=== PATIENT | male | born 1960 | race Two or more races ===

== ENCOUNTER 2017-05-08 19:34 | Emergency (ER) | payer MEDICAID ==
[2017-05-08 19:47] VITALS: TEMP 98
--- NOTE | 2017-05-08 20:47 | ED PDOC ---
Arrival/HPI - General Chief Complaint: Lower Extremity Problem/Injury Time Seen by Provider: 05/08/17 19:40 Historian: Patient - History of Present Illness Narrative History of Present Illness (Text): 05/08/17 20:44 56 yo M, with h/o chronic neuropathy with numbness to the L toes, reports injuring his L foot, specifically his L 2nd toe when he accidentally hit it against the wall on 05/07/17. He sustained an abrasion on top of his L 1st and 2nd toe and then cleaned it with a topical antiseptic and developed a rash afterwards. Otherwise: (-) decrease in ROM, (-) fever, (-) chills. (-) other injury, (-) other or new numbness. PMD [facility] Past Medical History - Provider Review Nursing Documentation Reviewed: Yes - Infectious Disease Hx of Infectious Diseases: None - Neurological Other/Comment: neuropathy - Psychiatric Hx Substance Use: No - Surgical History Other/Comment: cervical surgery - Anesthesia Hx Anesthesia: Yes Hx Anesthesia Reactions: No Hx Malignant Hyperthermia: No Family/Social History - Physician Review Nursing Documentation Reviewed: Yes Family/Social History: Unknown Family HX Smoking Status: Never Smoked Hx Alcohol Use: No Hx Substance Use: No Allergies/Home Meds Allergies/Adverse Reactions: Allergies monosodium glutamate Adverse Reaction (Verified 05/08/17 19:49) RASH Home Medications: Home Meds Medication Instructions Recorded Confirmed Gabapentin [Neurontin] 200 mg PO BID 05/08/17 05/08/17 Review of Systems - Review of Systems Constitutional: Normal. absent: Fatigue, Weight Change, Fevers Musculoskeletal: Normal, Arthralgias. absent: Back Pain, Neck Pain Skin: Normal, Rash. absent: Pruritis, Skin Lesions Physical Exam - Physical Exam Narrative Physical Exam (Text): 05/08/17 20:47 GENERAL APPEARANCE: Patient is awake, alert, oriented x 3, in no acute distress. SKIN: Warm, dry, (+) non-tender, not warm erythematous rash to the dorsal aspect of the L 1st and 2nd digit, (-) other skin lesions or rashes. LOWER EXTREMITY: (+) Tenderness, (-) swelling, (-) ecchymosis of L 2nd toe. (- ) crepitus, (-) deformity. Tendon function intact. (-) distal vascular deficit. (+) decrease in sensation to the L toes. Remainder of foot, digits and ankle: (-) injury except. Vital Signs Temp Pulse Resp BP Pulse Ox 05/08/17 20:50 98 F 98 H 19 138/75 97 05/08/17 20:29 98 F 05/08/17 20:04 95 H 20 05/08/17 19:36 98 F 103 H 20 158/99 H 96 Medical Decision Making ED Course and Treatment: 05/08/17 20:46 56 yo M, with h/o chronic neuropathy with numbness to the L toes, reports injuring his L 2nd toe when he accidentally hit it against the wall on 05/07/17. Plan : - XR L foot - Motrin 600 mg PO 05/08/17 21:20 XR L foot: no fracture, no dislocation, as read by PA Patient advised that official radiology read of XR is still pending and will call the patient if there is any discrepancy within 24 hours. XR results d/w the patient. Dx of foot contusion and contact dermatitis d/w the patient. Follow up with primary care physician in 1-2 days without fail for re- evaluation and to observe for any increase in the size of redness. Advised to take medication as prescribed. Return to the emergency room at any time for any new or worsening symptoms. Patient states he fully agrees with and understands discharge instructions. States that he agrees with the plan and disposition. Verbalized and repeated discharge instructions and plan. I have given the patient opportunity to ask any additional questions. - RAD Interpretation Radiology Orders: 05/08/17 20:22 FOOT LEFT 3 VIEWS ROUTINE [RAD] Stat - Medication Orders Current Medication Orders: Discontinued Medications Ibuprofen (Motrin Tab) 600 mg PO STAT STA Stop: 05/08/17 20:23 Last Admin: 05/08/17 20:29 Dose: 600 mg MAR Pain/Vitals Document 05/08/17 20:29 GMI (Rec: 05/08/17 20:29 G[id number] Pain Reassessment Is This A Pain ReAssessment? Yes Sleep Is patient sleeping during reassessment? No Presence of Pain Presence of Pain Yes Pain Scale Used Pain Scale Used Numeric Vitals Temperature (97.6 F-99.6 F) 98 F - PA / NOTCHER / Resident Statement MD/DO has reviewed & agrees with the documentation as recorded. Disposition/Present on Arrival - Present on Arrival Any Indicators Present on Arrival: No History of DVT/PE: No History of Uncontrolled Diabetes: No Urinary Catheter: No History of Decub. Ulcer: No History Surgical Site Infection Following: None - Disposition Have Diagnosis and Disposition been Completed?: Yes Diagnosis: Contusion of left foot, Contact dermatitis Disposition: HOME/ ROUTINE Disposition Time: 21:18 Patient Plan: Discharge Condition: STABLE Discharge Instructions (ExitCare): Contusion in Adults (ED), Contact Dermatitis (ED) Print Language: ITALIAN Additional Instructions: Thank you for letting us take care of you today. You were treated for Left foot contusion / contact dermatitis. The emergency medical care you received today was directed at your acute symptoms. If you were prescribed any medication, please fill it and take as directed. It may take several days for your symptoms to resolve. Return to the Emergency Department if your symptoms worsen, do not improve, or if you have any other problems. Please contact your doctor in 2 days for re-evaluation and follow up. Bring any paperwork you were given at discharge with you along with any medications you are taking to your follow up visit. Our treatment cannot replace ongoing medical care by a primary care provider (PCP) outside of the emergency department. Thank you for allowing the [facility] team to be part of your care today. If you had an X-Ray : A Radiologist will review the ED reading if any change in treatment is needed we will contact you. Prescriptions: Hydrocortisone Gail 0.2% Cr [Westcort] 1 applic TOP BID #1 tube Referrals: John Nuñez MD [Primary Care Provider] - Follow up with primary Forms: [employer] (Welsh), WORK NOTE
[2017-05-08 20:51] VITALS: BP 138/75; PULSE 98; RESP 19; O2SAT 97
--- NOTE | 2017-05-09 10:21 | RAD ---
PROCEDURE: Left Foot Radiographs. HISTORY: pain COMPARISON: None. FINDINGS: BONES: Normal. No fracture. JOINTS: Mild arthritic degenerative changes SOFT TISSUES: Normal. OTHER FINDINGS: None. IMPRESSION: No evidence of acute pathology. Mild arthritic degenerative changes.
== END 2017-05-08 21:28 | disposition home or self-care (01) ==
LOC: ED 19:34
DX: L25.9 Unspecified contact dermatitis, unspecified cause (principal); S90.32XA Contusion of left foot, initial encounter; W22.01XA Walked into wall, initial encounter